=== PATIENT | male | born 1955 | race Caucasian/White ===

== ENCOUNTER → 2016-09-15 | Outpatient (CLI) | payer OTHER ==
[2016-09-15 18:04] LABS: LYMPH # 1.7 K/mm3 (0.7-4.5); LYMPH % 33.4 % (10-50)
[2016-09-15 18:14] LABS: HEMOGLOBIN 13.7 g/dL (14.1-18.0)
[2016-09-15 20:31] LABS: BUN 11 mg/dL (7-18)
[2016-09-15 21:04] LABS: GFR (ESTIMATED) 86 ML/MIN (>60)
== END ==
LOC: LAB 17:33
PROVIDERS: Internal Medicine Adolescent Medicine
DX: R51 Headache (principal); E78.5 Hyperlipidemia, unspecified; I25.10 Atherosclerotic heart disease of native coronary artery without angina pectoris

== ENCOUNTER → 2016-09-16 | Outpatient (CLI) | payer OTHER ==
--- NOTE | 2016-09-19 08:16 | RADIOLOGY REPORT PS360 ---
MRI-BRAIN W/O HISTORY: Severe lingering headache HEADACHE ORDERING PHYSICIAN: Taran Muñoz MD PATIENT AGE: 61 years COMPARISON: None TECHNIQUE: Standard multiplanar multiecho sequences are performed without contrast. FINDINGS: No midline shift, mass effect, intracranial hemorrhage, hydrocephalus, or acute infarction is evident. No intra or extra-axial mass. The cerebellopontine angles, cerebellum, and brainstem are unremarkable as is the pituitary. No evidence of cerebellar tonsillar ectopia. Mild involutional changes of age with decrease in brain volume and minimal periventricular T2 white matter hyperintensity. No mastoid effusion or sinus air-fluid level. IMPRESSION: Negative MRI of the brain without contrast, no acute finding
== END ==
LOC: RAD 15:15
DX: R51 Headache (principal)